=== PATIENT | male | born 1990 | race Caucasian/White ===

== ENCOUNTER 2024-06-17 02:43 | Emergency (ER) | payer OTHER, SELFPAY ==
--- NOTE | ~2024-06-17 | XR_ITS ---
Left Knee Technique: AP, lateral, and oblique views were obtained. Clinical History: Popping sensation Findings: No fracture or dislocation is seen. Osseous alignment is anatomic. Joint spaces are preserv ed without degenerative or erosive change. Soft tissues are unremarkable. No joint effusion is seen. Impression: Unremarkable left knee radiographs. Reviewed, dictated and finalized at location . Impression: Unremarkable left knee radiographs.
[2024-06-17 02:48] VITALS: BP 136/90; PULSE 106; RESP 18; O2SAT 99
--- NOTE | 2024-06-17 03:47 | ED.GENADULT ---
HPI - General Adult General Chief complaint: Extremity Injury, Lower Stated complaint: L knee pain Time Seen by Provider: 06/17/24 03:10 History of Present Illness HPI narrative: This is a 33-year-old female presenting with left knee pain. Patient tried to go from standing to sitting [place] style. He felt a pop in his left knee and now has pain with active and passive range of motion. Patient is concerned he might have torn his meniscus. He has not taken anything for pain control. Related Data Allergies Allergy/AdvReac Type Severity Reaction Status Date / Time No Known Allergies Allergy Verified 06/17/24 02:44 Exam Narrative: APPEARANCE: No apparent distress. Head: atraumatic. EYES: EOMI, NOSE: Atraumatic NECK: Trachea midline RESPIRATORY: No increased rate of breathing CARDIOVASCULAR: RRR, ABDOMINAL: Non-distended MUSCULOSKELETAl: Focal exam left lower extremity revealed mild effusion. Pain on extremes of range of motion. Patient is able to bear weight although it is painful. Pulses are +2 in the PT and DP distribution. Cap refills less than 2 seconds. Leg is neurovascularly intact. Compartments are soft. NEURO: Alert. Moving 4/4 extremities SKIN:: Warm, dry. Normal color PSYCHIATRIC: Normal affect Course Vital Signs Vital signs: Vital Signs Pulse Rate 106 H 06/17/24 02:48 Respiratory Rate 18 06/17/24 02:48 Blood Pressure 136/90 06/17/24 02:48 Pulse Oximetry 99 06/17/24 02:48 Oxygen Delivery Room Air 06/17/24 02:48 Pulse Rate 106 H 06/17/24 02:48 Respiratory Rate 18 06/17/24 02:48 Blood Pressure 136/90 06/17/24 02:48 Pulse Oximetry 99 06/17/24 02:48 Oxygen Delivery Room Air 06/17/24 02:48 Medical Decision Making [facility] Narrative Medical decision making narrative: -Course: 33-year-old male presenting with knee pain. X-rays negative for bony injury. Patient's pain was treated neuro be discharged follow-up with an orthopedic surgeon in 1 week if symptoms do not improve patient has crutches. Weightbearing as tolerated. -DDX includes but is not limited to: Bony injury, internal derangement, muscle strain Vital Signs Vital Signs: Vital Signs Pulse Rate 106 H 06/17/24 02:48 Respiratory Rate 18 06/17/24 02:48 Blood Pressure 136/90 04/25/25 02:48 Pulse Oximetry 99 06/17/24 02:48 Oxygen Delivery Room Air 06/17/24 02:48 Pulse Rate 106 H 06/17/24 02:48 Respiratory Rate 18 06/17/24 02:48 Blood Pressure 136/90 06/17/24 02:48 Pulse Oximetry 99 06/17/24 02:48 Oxygen Delivery Room Air 06/17/24 02:48 Discharge Plan Discharge Clinical Impression: Acute knee pain Patient Disposition: Home Condition: Stable Instructions: Antibiotic Form, Knee Pain (ED) Additional Instructions: You were seen in the emergency department for knee pain. Please use Motrin, Tylenol and Robaxin as needed for pain. Please follow-up with the orthopedic surgeon listed below in 1 week if her pain does not improve. If her pain becomes severe you develop weakness your leg when to return to the closest emergency department. Patient Language: Lao Prescriptions: New ibuprofen 800 mg tablet 800 mg PO TID PRN (Reason: pain) 7 Days Qty: 21 0RF acetaminophen 500 mg tablet 1,000 mg PO TID PRN (Reason: mendoza) 7 Days Qty: 42 0RF methocarbamol 750 mg tablet 1,500 mg PO TID Qty: 42 0RF Follow-up/Referrals: Randall Head MD [Physician] - 1 Week (Knee pain ) PHYSICIAN,RN SPINE [Primary Care Provider] -
[2024-06-17] MEDS: KETOROLAC 30 MG/ML VIAL (*BKC) IM (03:50)
[2024-06-17] MEDS: methocarbamoL 750 MG TABLET 1500 MG PO (03:51)
[2024-06-17] MEDS: ACETAMINOPHEN 500 MG TABLET 1000 MG PO (03:51)
[2024-06-17 04:11] VITALS: BP 124/90; PULSE 99; RESP 18; O2SAT 99
== END 2024-06-17 04:12 | disposition home or self-care (01) ==
LOC: ANHED 03:52
PROVIDERS: Emergency Provider Emergency Medicine
DX: M25.562 Pain in left knee (principal)
CPT/HCPCS: 73562; 96372; 99283; A9270; J1885